=== PATIENT | female | born 1945 | race Caucasian/White ===

== ENCOUNTER 2022-01-30 13:05 | Outpatient (RCR) | payer MEDICARE | END 2022-02-07 | disposition still patient (30) | LOC: MKS.ESL.PT | DX: R60.0 Localized edema (principal) ==

== ENCOUNTER 2022-04-02 14:48 | Outpatient (RCR) | payer MEDICARE | END 2022-04-02 14:49 | disposition home or self-care (01) | LOC: MKS.ESL.PT 14:48 | DX: M79.89 Other specified soft tissue disorders (principal) ==

== ENCOUNTER 2024-05-29 17:59 | Emergency (ER) | payer MEDICARE ==
[~2024-05-29] VITALS: Ht 162.6 cm; Wt 89.1 kg
[2024-05-29 18:04] VITALS: TEMP 97.6
[2024-05-29 18:37] LABS: BASO % 0.4 % (0.0-2.0); EOS # 0.2 K/mm3 (0.0-0.7); GRAN % 61.4 % (42.2-75.2); HEMATOCRIT 46.7 % (37.0-47.0); HEMOGLOBIN 15.6 g/dl (12.5-16.0); LYMPH # 2.4 K/mm3 (1.2-3.4); LYMPH % 29.4 % (20.0-51.0); MEAN CELL VOLUME 93 fl (80.0-100.0); MEAN CORPUSCULAR HEMOGLOBIN 31 pg (27-31); MEAN CORPUSCULAR HGB CONC 33 g/dl (33.0-37.0); MEAN PLATELET VOLUME 12.1 fl (7.4-10.4); MONO # 0.5 K/mm3 (0.1-0.6); MONO % 6.6 % (1.7-9.3); PLATELET COUNT 184 K/mm3 (130-400); RED BLOOD COUNT 5.05 M/mm3 (4.10-5.30); REDCELL DISTRIBUTION WIDTH-CV 12.4 % (11.5-14.5)
[2024-05-29 18:57] LABS: ALBUMIN 3.5 g/dL (3.4-4.8); BILIRUBIN,TOTAL 0.5 mg/dL (0.2-1.2); CALCIUM 9.5 mg/dL (8.4-10.2); CREATININE, serum 0.88 mg/dL (0.57-1.11); POTASSIUM 3.8 mEq/L (3.5-4.5); TOTAL PROTEIN 6.9 g/dl (6.2-8.1)
[2024-05-29 18:58] LABS: PH 6.5 (5.0-8.5); URINE APPEARANCE CLEAR (CLEAR/HAZY); URINE BLOOD 1+ (NEGATIVE); URINE COLOR YELLOW (YELLOW); URINE GLUCOSE NEGATIVE (NEGATIVE); URINE KETONE NEGATIVE (NEGATIVE); URINE NITRATE NEGATIVE (NEGATIVE); URINE PROTEIN(semi-quant) NEGATIVE (NEGATIVE); URINE UROBILINOGEN 0.2 E.U/dL (0.2-1.0)
[2024-05-29 19:16] LABS: MUCOUS PRESENT (NOT PRESENT); URINE BACTERIA RARE /hpf (NONE SEEN); URINE WBC None Seen /hpf (0-2)
[2024-05-29 19:43] LABS: COLLECTION METHOD CLEAN CATCH
[2024-05-29 20:15] VITALS: BP 180/80; PULSE 71
== END 2024-05-29 21:46 | disposition home or self-care (01) ==
LOC: COL.ER 17:59
PROVIDERS: Physician Assistant
DX: R10.32 Left lower quadrant pain (principal); E11.9 Type 2 diabetes mellitus without complications; Z79.899 Other long term (current) drug therapy